=== PATIENT | male | born 1965 | race African-American/Black ===

== ENCOUNTER 2017-12-02 22:15 | Inpatient (IN) | payer MEDICAID ==
[~2017-12-02] VITALS: Ht 198.1 cm; Wt 61.2 kg
[2017-12-02] MEDS ORDERED: MELOXICAM7.5 MG PO (22:27)
[2017-12-02] MEDS ORDERED: SERTRALINE HCL25 MG ORAL (22:27)
[2017-12-02] MEDS ORDERED: LISINOPRIL5 MG ORAL (22:27)
[2017-12-02] MEDS ORDERED: ATORVASTATIN CA20 MG ORAL (22:27)
[2017-12-02] MEDS ORDERED: ISOSORBIDE DINIT5 MG ORAL (22:27)
[2017-12-02] MEDS ORDERED: IBUPROFEN600 MG ORAL (22:27)
[2017-12-02] MEDS ORDERED: CARVEDILOL6.25 MG ORAL (22:27)
[2017-12-02] MEDS ORDERED: LATUDA40 MG PO (22:27)
[2017-12-02] MEDS ORDERED: ZOFRAN8 MG ORAL (22:27)
[2017-12-02] MEDS ORDERED: ACID REDUCER20 MG ORAL (22:27)
[2017-12-02] MEDS ORDERED: TRAZODONE HCL100 MG ORAL (22:27)
[2017-12-02] MEDS ORDERED: ASPIR 8181 MG ORAL (22:27)
[2017-12-02 22:39] VITALS: BP 145/84
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
[2017-12-02] MEDS ORDERED: Mylanta II UD 30ml ORAL ONE (22:45)
[2017-12-02] MEDS ORDERED: Lidocaine 2% Visc 15ml soln ORAL ONE (22:45)
[2017-12-02] MEDS ORDERED: Dicyclomine HCl 10mg/5ml oral soln ORAL ONE (22:45)
[2017-12-02 23:04] LABS: APPEARANCE,URINE CLEAR; BILIRUBIN, URINE NEGATIVE (NEGATIVE); COLOR,URINE PALE YELLOW; GLUCOSE, URINE (UA) NEGATIVE (NEGATIVE); KETONES,URINE NEGATIVE (NEGATIVE); LEUKOCYTE ESTERASE ,URINE NEGATIVE (NEGATIVE); NITRITE,URINE NEGATIVE (NEGATIVE); PH,URINE 8 (4.5-8.0); PROTEIN,URINE NEGATIVE (NEGATIVE); UROBILINOGEN,URINE NORMAL MG/DL (0.0-1.0)
[2017-12-02 23:05] LABS: BASOPHILS % (AUTO) 0.5 % (0.0-2.0); EOSINOPHILS % (AUTO) 1.1 % (0.0-3.0); HEMATOCRIT 35.8 % (42.0-52.0); HEMOGLOBIN 12.8 G/DL (14.2-18.0); LYMPHOCYTES % (AUTO) 16.8 % (20.0-45.0); MEAN CORPUSCULAR VOLUME 96 FL (80-99); NEUTROPHILS % (AUTO) 74.6 % (45.0-75.0); PLATELET COUNT 272 K/UL (150-450); RED BLOOD COUNT 3.75 M/UL (4.70-6.10); RED CELL DISTRIBUTION WIDTH 10.7 % (11.6-14.8); WHITE BLOOD COUNT 7.7 K/UL (4.8-10.8)
[2017-12-02 23:22] LABS: ANION GAP 5 mmol/L (5-15); BLOOD UREA NITROGEN 13 mg/dL (7-18); CALCIUM 8.4 MG/DL (8.5-10.1); CARBON DIOXIDE 32 MMOL/L (21-32); CHLORIDE 103 MMOL/L (98-107); CREATININE 0.8 MG/DL (0.55-1.30); POTASSIUM 4.2 MMOL/L (3.5-5.1); SODIUM 140 MMOL/L (136-145)
[2017-12-02 23:35] LABS: ALANINE AMINOTRANSFERASE 35 U/L (12-78); ALBUMIN 3.7 G/DL (3.4-5.0); ALBUMIN/GLOBULIN RATIO 1.1 (1.0-2.7); ALKALINE PHOSPHATASE 62 U/L (46-116); ASPARTATE AMINO TRANSFERASE 36 U/L (15-37); BILIRUBIN,TOTAL 0.8 MG/DL (0.2-1.0); CKMB 2.1 NG/ML (0.0-3.6); CREATINE KINASE 173 U/L (26-308)
[2017-12-03] VITALS (7 sets, daily range): BP systolic 108–146; BP diastolic 70–91
[2017-12-03] MEDS: Morphine Sulfate 2mg/ml Inj IVP PRN ×2 (02:29→13:11)
[2017-12-03] MEDS ORDERED: Lexiscan 0.4mg/5ml syringe IV ONE (08:00)
[2017-12-03] MEDS: Carvedilol 6.25mg Tab ORAL SCH ×2 (09:00→20:50)
[2017-12-03] MEDS: Aspirin Baby 81mg ORAL SCH (09:44)
[2017-12-03] MEDS: Sertraline 100mg tab ORAL SCH (09:44)
[2017-12-03] MEDS: Lisinopril 2.5mg tab ORAL SCH (09:45)
[2017-12-03] MEDS: Heparin 5000 units/ml inj SUBQ SCH ×2 (09:46→20:52)
--- NOTE | 2017-12-03 13:07 | Diagnostic Imaging Report ---
. Indication: Chest pain Technique: XRAY Chest 1v Comparison: None Findings: Heart size and mediastinal contours are within normal limits given technique. There is no focal consolidation, pneumothorax or pleural effusion. Osseous structures demonstrate no acute abnormality. Impression: No radiographic evidence of acute cardiopulmonary disease.
--- NOTE | 2017-12-03 15:23 | History & Physical ---
History and Physical History & Physicial Dictated for Int Med - Dr Laughlin no. [id number]. DINESH ELIZALDE Dec 03, 2017 15:23
--- NOTE | 2017-12-03 15:25 | Cardiac Electrophysiology PN ---
Subjective Subjective [id number] Objective Last 24 Hour Vital Signs Date Time Temp Pulse Resp B/P (MAP) Pulse Ox O2 Delivery O2 Flow Rate FiO2 12/03/17 13:10 114/75 12/03/17 12:00 58 12/03/17 12:00 98.2 52 21 114/75 100 Room Air 98.2 12/03/17 09:45 146/80 12/03/17 09:44 146/80 12/03/17 09:00 56 146/80 12/03/17 08:00 53 12/03/17 08:00 97.9 56 20 146/80 97 Room Air 97.9 12/03/17 04:00 66 12/03/17 04:00 97.9 59 20 143/77 98 Room Air 97.9 12/03/17 01:23 98.1 61 18 146/91 100 Room Air 98.1 12/03/17 01:20 97.9 58 18 146/85 100 Room Air 97.9 12/03/17 00:20 98.1 61 18 146/91 100 Room Air 98.1 12/03/17 00:00 68 12/02/17 22:39 61 18 Room Air 12/02/17 22:39 98.1 61 18 145/84 100 Room Air 98.1 12/02/17 22:11 98.1 90 16 154/96 98 Room Air 98.1 Laboratory Tests Test 12/02/17 22:52 12/02/17 22:55 12/03/17 09:55 Urine Color Pale yellow Urine Appearance Clear Urine pH 8 (4.5-8.0) Urine Specific [place] 1.010 (1.005-1.035) Urine Protein Negative (NEGATIVE) Urine Glucose (UA) Negative (NEGATIVE) Urine Ketones Negative (NEGATIVE) Urine Occult Blood Negative (NEGATIVE) Urine Nitrite Negative (NEGATIVE) Urine Bilirubin Negative (NEGATIVE) Urine Urobilinogen Normal MG/DL (0.0-1.0) Urine Leukocyte Esterase Negative (NEGATIVE) White Blood Count 7.7 K/UL (4.8-10.8) Red Blood Count 3.75 M/UL (4.70-6.10) L Hemoglobin 12.8 G/DL (14.2-18.0) L Hematocrit 35.8 % (42.0-52.0) L Mean Corpuscular Volume 96 FL (80-99) Mean Corpuscular Hemoglobin 34.2 PG (27.0-31.0) H Mean Corpuscular Hemoglobin Concent 35.8 G/DL (32.0-36.0) Red Cell Distribution Width 10.7 % (11.6-14.8) L Platelet Count 272 K/UL (150-450) Mean Platelet Volume 6.1 FL (6.5-10.1) L Neutrophils (%) (Auto) 74.6 % (45.0-75.0) Lymphocytes (%) (Auto) 16.8 % (20.0-45.0) L Monocytes (%) (Auto) 7.0 % (1.0-10.0) Eosinophils (%) (Auto) 1.1 % (0.0-3.0) Basophils (%) (Auto) 0.5 % (0.0-2.0) Sodium Level 140 MMOL/L (136-145) Potassium Level 4.2 MMOL/L (3.5-5.1) Chloride Level 103 MMOL/L (98-107) Carbon Dioxide Level 32 MMOL/L (21-32) Anion Gap 5 mmol/L (5-15) Blood Urea Nitrogen 13 mg/dL (7-18) Creatinine 0.8 MG/DL (0.55-1.30) Estimat Glomerular Filtration Rate > 60 mL/min (>60) Glucose Level 93 MG/DL (74-106) Calcium Level 8.4 MG/DL (8.5-10.1) L Total Bilirubin 0.8 MG/DL (0.2-1.0) Aspartate Amino Transf (AST/SGOT) 36 U/L (15-37) Alanine Aminotransferase (ALT/SGPT) 35 U/L (12-78) Alkaline Phosphatase 62 U/L (46-116) Total Creatine Kinase 173 U/L (26-308) Creatine Kinase MB 2.1 NG/ML (0.0-3.6) Creatine Kinase MB Relative Index 1.2 Troponin I 0.000 ng/mL (0.000-0.056) 0.000 ng/mL (0.000-0.056) Pro-B-Type Natriuretic Peptide 177 pg/mL (0-125) H Total Protein 7.2 G/DL (6.4-8.2) Albumin 3.7 G/DL (3.4-5.0) Globulin 3.5 g/dL Albumin/Globulin Ratio 1.1 (1.0-2.7) [place] Lake MD Dec 03, 2017 15:25
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
--- NOTE | 2017-12-03 17:36 | Diagnostic Imaging Report ---
Indications: Chest pain Technique: Single day single isotope protocol utilized. Initially, resting images obtained using IV administration 10 millicuries 99M technetium Myoview. Subsequently, patient underwent stress testing. See cardiology report for details. During stress, IV administration 31.8 mCi 99 M technetium Myoview. SPECT and planar images obtained. SPECT images gated to 8 phases of the cardiac cycle were also obtained, and reformatted into cine images for evaluation of ejection fraction. Comparison: None Findings: Nausea was encountered during stress portion of the exam. Per cardiology report, resting EKG demonstrates sinus bradycardia with repolarization abnormality. Per cardiology report: * Clinical response to pharmacologic stress: Nonischemic * Electrocardiographic response to pharmacologic stress: Nonischemic Imaging demonstrates normal post stress perfusion, no fixed or reversible perfusion defects are demonstrated. Cardiac chamber size is normal.. Calculated post stress ejection fraction 70% IMPRESSION: Nonischemic clinical response to pharmacologic stress, per cardiology report Nonischemic electrocardiographic response to pharmacologic stress, per cardiology report No imaging findings to suggest ischemia, at level of stress achieved. Calculated post stress ejection fraction of 70%
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
[2017-12-03] MEDS: TraZODone 100mg tab ORAL SCH (20:49)
[2017-12-03] MEDS: Atorvastatin 20mg tab ORAL SCH (20:49)
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
[2017-12-04] VITALS: BP 98/56
[2017-12-04 04:00] VITALS: BP 106/64
--- NOTE | 2017-12-04 08:11 | General Progress Note ---
Assessment/Plan Problem List: (1) Epigastric pain ICD Codes: R10.13 - Epigastric pain SNOMED: 47049980 Assessment/Plan fu ct add laxatives fu labs GI procedures on hold Subjective ROS Limited/Unobtainable: Yes Allergies: Coded Allergies: No Known Allergies (Unverified , 12/02/17) Subjective abd pain is better going for CT no BM for 3 days Objective Last 24 Hour Vital Signs Date Time Temp Pulse Resp B/P (MAP) Pulse Ox O2 Delivery O2 Flow Rate FiO2 12/04/17 04:00 55 12/04/17 04:00 97.7 57 18 106/64 97 Room Air 97.7 12/04/17 00:00 55 12/04/17 00:00 97.7 54 18 98/56 98 Room Air 97.7 12/03/17 20:50 54 126/71 12/03/17 20:00 97.9 54 18 126/71 98 Room Air 97.9 12/03/17 20:00 56 12/03/17 17:13 110/75 12/03/17 16:00 97.5 60 18 108/70 98 Room Air 97.5 12/03/17 13:10 114/75 12/03/17 12:00 58 12/03/17 12:00 98.2 52 21 114/75 100 Room Air 98.2 12/03/17 09:45 146/80 12/03/17 09:44 146/80 12/03/17 09:00 56 146/80 Intake and Output 12/03/17 12/04/17 19:00 07:00 Intake Total 350 ml 300 ml Balance 350 ml 300 ml Intake Oral 300 ml Other 350 ml # Voids 3 Laboratory Tests 12/03/17 09:55: Troponin I 0.000 12/03/17 10:10: Lipase 53L Height (Feet): 6 Height (Inches): 6.00 Weight (Pounds): 135 General Appearance: alert EENT: normal ENT inspection Neck: supple Cardiovascular: normal rate Respiratory/Chest: decreased breath sounds Abdomen: normal bowel sounds, non tender, soft Extremities: non-tender CRESENCIO NYE Dec 04, 2017 08:11
[2017-12-04] MEDS: Docusate 100mg cap ORAL SCH ×2 (09:09→17:52)
[2017-12-04] MEDS: Aspirin Baby 81mg ORAL SCH (09:09)
[2017-12-04] MEDS: Lisinopril 2.5mg tab ORAL SCH (09:10)
[2017-12-04] MEDS: Carvedilol 6.25mg Tab ORAL SCH ×2 (09:11→21:00)
[2017-12-04] MEDS: Sertraline 100mg tab ORAL SCH (09:11)
[2017-12-04] MEDS: Heparin 5000 units/ml inj SUBQ SCH ×2 (09:16→21:20)
[2017-12-04 10:08] LABS: BASOPHILS % (AUTO) 0.3 % (0.0-2.0); EOSINOPHILS % (AUTO) 2.8 % (0.0-3.0); HEMATOCRIT 35.1 % (42.0-52.0); HEMOGLOBIN 12.1 G/DL (14.2-18.0); MEAN CORPUSCULAR VOLUME 97 FL (80-99); MONOCYTES % (AUTO) 9.8 % (1.0-10.0); NEUTROPHILS % (AUTO) 60.1 % (45.0-75.0); PLATELET COUNT 249 K/UL (150-450); RED BLOOD COUNT 3.63 M/UL (4.70-6.10); RED CELL DISTRIBUTION WIDTH 10.5 % (11.6-14.8); WHITE BLOOD COUNT 5.2 K/UL (4.8-10.8)
--- NOTE | 2017-12-04 10:24 | Diagnostic Imaging Report ---
. Indication: Reason For Exam: ABD PAIN Technique: CT scan of the abdomen and pelvis was performed from the diaphragms to the symphysis pubis with intravenous contrast material and oral contrast material. Biphasic liver scanning was employed. 5 mm sections were generated. Axial, coronal, and sagittal images are presented. Dose: Total Dose Length Product - DLP [address] Dose Index - CTDIvol(s) 9.20 mGy. Automated exposure control was utilized for dose reduction. Comparison: None Findings: Most of the oral contrast material is in the colon. The liver is normal. The gallbladder is unremarkable. The spleen is normal. The pancreas is unremarkable. Adrenal glands are normal. There is a 10 mm calcification in the upper pole the left kidney. Tiny low density lesions are noted in the cortex of both kidneys, too small to characterize. The aorta and inferior vena cava are normal caliber. The retroperitoneum is free of adenopathy. The bowel is normal caliber. The appendix is normal. Bladder is collapsed. Prostate and seminal vesicles are unremarkable. Diverticula are noted in the colon. There is no definite evidence of diverticulitis. Impression: Left upper pole renal calculus, nonobstructive. Tiny low-density lesions in the kidneys bilaterally, too small to characterize but likely cysts. Diverticulosis. No evidence of diverticulitis. The CT scanner at is accredited by the [employer] and the scans are performed using protocols designed to limit radiation exposure to as low as reasonably achievable to attain images of sufficient resolution adequate for diagnostic evaluation.
[2017-12-04 10:52] LABS: ALANINE AMINOTRANSFERASE 31 U/L (12-78); ALBUMIN 3.4 G/DL (3.4-5.0); ALBUMIN/GLOBULIN RATIO 1.2 (1.0-2.7); ALKALINE PHOSPHATASE 57 U/L (46-116); ANION GAP 6 mmol/L (5-15); ASPARTATE AMINO TRANSFERASE 24 U/L (15-37); BILIRUBIN,TOTAL 0.7 MG/DL (0.2-1.0); BLOOD UREA NITROGEN 17 mg/dL (7-18); CALCIUM 8.2 MG/DL (8.5-10.1); CARBON DIOXIDE 30 MMOL/L (21-32); CHLORIDE 106 MMOL/L (98-107); CREATININE 0.8 MG/DL (0.55-1.30); POTASSIUM 4.2 MMOL/L (3.5-5.1); SODIUM 141 MMOL/L (136-145)
[2017-12-04] MEDS ORDERED: NORCO 5-325 TA1 EACH ORAL (12:37)
[2017-12-04] MEDS ORDERED: PANTOPRAZOLE SO40 MG ORAL (12:37)
--- NOTE | 2017-12-04 13:20 | Cardiac Electrophysiology PN ---
Assessment/Plan Status Narrative IMPRESSION: Nonischemic clinical response to pharmacologic stress, per cardiology report Nonischemic electrocardiographic response to pharmacologic stress, per cardiology report No imaging findings to suggest ischemia, at level of stress achieved. Calculated post stress ejection fraction of 70% Assessment/Plan 1. Atypical chest pain. The patient was ruled out for myocardial infarction by serial cardiac enzymes. The patient underwent echocardiogram that showed ejection fraction of 60% and underwent Lexiscan Cardiolite nuclear imaging that showed no ischemia 2. Questionable coronary artery disease. I highly doubt as EKG and echocardiogram completely normal. 3. Hyperlipidemia, on Lipitor. 4. Hypertension, on Coreg 6.25 mg b.i.d. and lisinopril 5 mg daily and Isordil 10 mg 3 times daily. 5. Depression, on Zoloft. 6. History of cocaine use in the past, currently denies. 7. Abdominal pain. S/P CT abdomen. Follow up Dr Susi MONTES RN Subjective Subjective Had CT abdomen today. No chest pain or arrhythmias Objective Last 24 Hour Vital Signs Date Time Temp Pulse Resp B/P (MAP) Pulse Ox O2 Delivery O2 Flow Rate FiO2 12/04/17 09:11 80 123/73 12/04/17 09:10 123/73 12/04/17 09:10 123/73 12/04/17 08:00 54 12/04/17 04:00 55 12/04/17 04:00 97.7 57 18 106/64 97 Room Air 97.7 12/04/17 00:00 55 12/04/17 00:00 97.7 54 18 98/56 98 Room Air 97.7 12/03/17 20:50 54 126/71 12/03/17 20:00 97.9 54 18 126/71 98 Room Air 97.9 12/03/17 20:00 56 12/03/17 17:13 110/75 12/03/17 16:00 97.5 60 18 108/70 98 Room Air 97.5 Intake and Output 12/03/17 12/04/17 19:00 07:00 Intake Total 350 ml 300 ml Balance 350 ml 300 ml Intake Oral 300 ml Other 350 ml # Voids 3 Laboratory Tests Test 12/04/17 09:10 White Blood Count 5.2 K/UL (4.8-10.8) Red Blood Count 3.63 M/UL (4.70-6.10) L Hemoglobin 12.1 G/DL (14.2-18.0) L Hematocrit 35.1 % (42.0-52.0) L Mean Corpuscular Volume 97 FL (80-99) Mean Corpuscular Hemoglobin 33.2 PG (27.0-31.0) H Mean Corpuscular Hemoglobin Concent 34.4 G/DL (32.0-36.0) Red Cell Distribution Width 10.5 % (11.6-14.8) L Platelet Count 249 K/UL (150-450) Mean Platelet Volume 6.5 FL (6.5-10.1) Neutrophils (%) (Auto) 60.1 % (45.0-75.0) Lymphocytes (%) (Auto) 27.0 % (20.0-45.0) Monocytes (%) (Auto) 9.8 % (1.0-10.0) Eosinophils (%) (Auto) 2.8 % (0.0-3.0) Basophils (%) (Auto) 0.3 % (0.0-2.0) Sodium Level 141 MMOL/L (136-145) Potassium Level 4.2 MMOL/L (3.5-5.1) Chloride Level 106 MMOL/L (98-107) Carbon Dioxide Level 30 MMOL/L (21-32) Anion Gap 6 mmol/L (5-15) Blood Urea Nitrogen 17 mg/dL (7-18) Creatinine 0.8 MG/DL (0.55-1.30) Estimat Glomerular Filtration Rate > 60 mL/min (>60) Glucose Level 98 MG/DL (74-106) Calcium Level 8.2 MG/DL (8.5-10.1) L Total Bilirubin 0.7 MG/DL (0.2-1.0) Aspartate Amino Transf (AST/SGOT) 24 U/L (15-37) Alanine Aminotransferase (ALT/SGPT) 31 U/L (12-78) Alkaline Phosphatase 57 U/L (46-116) Troponin I 0.000 ng/mL (0.000-0.056) Total Protein 6.3 G/DL (6.4-8.2) L Albumin 3.4 G/DL (3.4-5.0) Globulin 2.9 g/dL Albumin/Globulin Ratio 1.2 (1.0-2.7) Objective HEAD AND NECK: Shows no JVD. LUNGS: Clear. CARDIOVASCULAR: Regular S1 and S2 with no gallop or murmur. ABDOMEN: Soft. History of eschar of prior surgery and healed. EXTREMITIES: No pitting edema. [place] MD Dec 04, 2017 13:20
[2017-12-04] MEDS ORDERED: Magnesium Citrate Liq Btl ORAL ONE (13:30)
--- NOTE | 2017-12-04 16:42 | Internal Med Progress Note ---
Subjective Date of Service: Dec 04, 2017 Physician Name Ronald Elizalde Attending Physician Chong Laughlin MD Current Medications Medications (Trade) Dose Ordered Sig/Becca Route PRN Reason Start Time Stop Time Status Last Admin Dose Admin Acetaminophen (Tylenol) 650 mg Q6H PRN ORAL Mild Pain/Temp > 100.5 12/03/17 01:45 01/02/18 01:44 Al Hydroxide/Mg Hydroxide (Mylanta) 30 ml EVERY 8 HOURS PRN ORAL Abdominal cramps 12/03/17 01:45 01/02/18 01:44 Aspirin (ASA) 81 mg DAILY ORAL 12/03/17 09:00 01/02/18 08:59 12/04/17 09:09 Atorvastatin Calcium (Lipitor) 20 mg BEDTIME ORAL 12/03/17 21:00 01/02/18 20:59 12/03/17 20:49 Carvedilol (Coreg) 6.25 mg EVERY 12 HOURS ORAL 12/03/17 09:00 01/02/18 08:59 12/04/17 09:11 Docusate Sodium (Colace) 100 mg TWICE A DAY ORAL 12/04/17 09:00 01/03/18 08:59 12/04/17 09:09 Famotidine (Pepcid) 20 mg BID ORAL 12/03/17 09:00 01/02/18 08:59 12/04/17 09:10 Heparin Sodium (Porcine) (Heparin 5000 units/ml) 5,000 units EVERY 12 HOURS SUBQ 12/03/17 09:00 01/02/18 08:59 12/04/17 09:16 Influenza Virus Vaccine Quadrival (Flu Vaccine Quadrivalent) 0.5 ml ONCE ONCE IM 12/07/17 09:00 12/07/17 09:01 Isosorbide Dinitrate (Isordil) 10 mg THREE TIMES A DAY ORAL 12/03/17 09:00 01/02/18 08:59 12/04/17 13:32 Lisinopril (Zestril) 5 mg DAILY ORAL 12/03/17 09:00 01/02/18 08:59 12/04/17 09:10 Morphine Sulfate (Morphine Sulfate) 2 mg Q6H PRN IVP severe pain 12/03/17 02:15 12/10/17 02:14 12/03/17 13:11 Ondansetron HCl (Zofran ODT) 4 mg Q6H PRN ORAL Nausea & Vomiting 12/03/17 02:30 01/02/18 02:29 Polyethylene Glycol (Miralax) 17 gm BEDTIME ORAL 12/04/17 21:00 01/03/18 20:59 Sertraline HCl (Zoloft) 100 mg DAILY ORAL 12/03/17 09:00 01/02/18 08:59 12/04/17 09:11 Trazodone HCl (Desyrel) 100 mg BEDTIME ORAL 12/03/17 21:00 01/02/18 20:59 12/03/17 20:49 Allergies: Coded Allergies: No Known Allergies (Unverified , 12/02/17) ROS Limited/Unobtainable: Yes Constitutional: Reports: no symptoms HEENT: Reports: no symptoms Cardiovascular: Reports: chest pain Respiratory: Reports: no symptoms Gastrointestinal/Abdominal: Reports: no symptoms Genitourinary: Reports: no symptoms Neurologic/Psychiatric: Reports: no symptoms Subjective 52 YO M admitted with chest pain. Cover for [facility] Med - Dr Laughlin. Objective Last Vital Signs Date Time Temp Pulse Resp B/P (MAP) Pulse Ox O2 Delivery O2 Flow Rate FiO2 12/04/17 13:32 112/62 12/04/17 12:00 54 12/04/17 04:00 97.7 18 97 Room Air 97.7 Laboratory Tests Test 12/04/17 09:10 White Blood Count 5.2 K/UL (4.8-10.8) Red Blood Count 3.63 M/UL (4.70-6.10) L Hemoglobin 12.1 G/DL (14.2-18.0) L Hematocrit 35.1 % (42.0-52.0) L Mean Corpuscular Volume 97 FL (80-99) Mean Corpuscular Hemoglobin 33.2 PG (27.0-31.0) H Mean Corpuscular Hemoglobin Concent 34.4 G/DL (32.0-36.0) Red Cell Distribution Width 10.5 % (11.6-14.8) L Platelet Count 249 K/UL (150-450) Mean Platelet Volume 6.5 FL (6.5-10.1) Neutrophils (%) (Auto) 60.1 % (45.0-75.0) Lymphocytes (%) (Auto) 27.0 % (20.0-45.0) Monocytes (%) (Auto) 9.8 % (1.0-10.0) Eosinophils (%) (Auto) 2.8 % (0.0-3.0) Basophils (%) (Auto) 0.3 % (0.0-2.0) Sodium Level 141 MMOL/L (136-145) Potassium Level 4.2 MMOL/L (3.5-5.1) Chloride Level 106 MMOL/L (98-107) Carbon Dioxide Level 30 MMOL/L (21-32) Anion Gap 6 mmol/L (5-15) Blood Urea Nitrogen 17 mg/dL (7-18) Creatinine 0.8 MG/DL (0.55-1.30) Estimat Glomerular Filtration Rate > 60 mL/min (>60) Glucose Level 98 MG/DL (74-106) Calcium Level 8.2 MG/DL (8.5-10.1) L Total Bilirubin 0.7 MG/DL (0.2-1.0) Aspartate Amino Transf (AST/SGOT) 24 U/L (15-37) Alanine Aminotransferase (ALT/SGPT) 31 U/L (12-78) Alkaline Phosphatase 57 U/L (46-116) Troponin I 0.000 ng/mL (0.000-0.056) Total Protein 6.3 G/DL (6.4-8.2) L Albumin 3.4 G/DL (3.4-5.0) Globulin 2.9 g/dL Albumin/Globulin Ratio 1.2 (1.0-2.7) Intake and Output 12/03/17 12/04/17 19:00 07:00 Intake Total 350 ml 300 ml Balance 350 ml 300 ml Intake Oral 300 ml Other 350 ml # Voids 3 Objective PHYSICAL EXAMINATION: GENERAL: The patient is a well-developed and well-nourished thin-appearing male, in no apparent distress. VITAL SIGNS: Temperature 97.9 degrees, respirations 20, pulse 50 to 56, and blood pressure 146/80. HEENT: Eyes, pupils are equal and responsive to light and accommodation. Extraocular movements are intact. NECK: Supple without lymphadenopathy. CHEST: Lungs are clear to auscultation bilaterally without wheezes or rales. CARDIOVASCULAR: Regular rate. S1 and S2 normal without murmurs, rubs, or gallops. ABDOMEN: Soft, nontender, and nondistended. Positive bowel sounds. No evidence of hepatosplenomegaly. Currently, no rebound or guarding noted. EXTREMITIES: Negative for clubbing, cyanosis, or edema. RECTAL/GENITAL: Refused. NEUROLOGIC: Cranial nerves II through XII are grossly intact without focal deficits. Motor strength is 5/5 bilaterally. Deep tendon reflexes are 2+ plantar. Assessment/Plan Problem List: (1) Atypical chest pain Assessment & Plan: See cardiology note. Stress test = neg ischemia (2) Coronary artery disease (3) HTN (hypertension) Assessment & Plan: continue coreg and zestril (4) DMII (diabetes mellitus, type 2) (5) Hypercholesteremia Assessment & Plan: Continue lipitor (6) Bipolar 1 disorder Assessment & Plan: see psych note. (7) Renal calculus (8) Diverticulosis Status: not improved RONALD ELIZALDE Dec 04, 2017 16:42
[2017-12-04] MEDS: Nitroglycerin Subl 0.4mg tab SL PRN (17:53)
--- NOTE | 2017-12-04 18:05 | Cardiology Report ---
APPROVED REPORT EKG Measurement Heart [id number] Sinus bradycardia Otherwise normal ECG
--- NOTE | 2017-12-04 18:13 | Cardiology Report ---
APPROVED REPORT EKG Measurement Heart [id number] 124P80 [id number] Normal sinus rhythm Incomplete RBBB Abnormal ECG
[2017-12-04 20:00] VITALS: BP 120/69
[2017-12-04] MEDS: Miralax 17gm pkt ORAL SCH (21:00)
[2017-12-04] MEDS: TraZODone 100mg tab ORAL SCH (21:10)
[2017-12-04] MEDS: Atorvastatin 20mg tab ORAL SCH (21:10)
[2017-12-04] MEDS: Morphine Sulfate 2mg/ml Inj IVP PRN (21:11)
--- NOTE | 2017-12-05 08:20 | General Progress Note ---
Assessment/Plan Problem List: (1) Epigastric pain ICD Codes: R10.13 - Epigastric pain SNOMED: [id number] Assessment/Plan fu ct>> no acute finding laxatives fu labs GI procedures on hold Subjective ROS Limited/Unobtainable: Yes Allergies: Coded Allergies: No Known Allergies (Unverified , 12/02/17) Subjective abd pain is better had CP last night Objective Last 24 Hour Vital Signs Date Time Temp Pulse Resp B/P (MAP) Pulse Ox O2 Delivery O2 Flow Rate FiO2 12/05/17 04:00 58 12/05/17 00:00 57 12/04/17 20:00 97.7 54 20 120/69 100 97.7 12/04/17 20:00 57 12/04/17 17:53 139/77 12/04/17 17:50 124/71 12/04/17 16:00 57 12/04/17 13:32 112/62 12/04/17 12:00 54 12/04/17 09:11 80 123/73 12/04/17 09:10 123/73 12/04/17 09:10 123/73 Intake and Output 12/04/17 12/05/17 19:00 07:00 Intake Total 480 ml 240 ml Balance 480 ml 240 ml Intake Oral 480 ml 240 ml # Bowel Movements 2 Laboratory Tests 12/04/17 09:10: White Blood Count 5.2, Red Blood Count 3.63L, Hemoglobin 12.1L, Hematocrit 35.1L , Mean Corpuscular Volume 97, Mean Corpuscular Hemoglobin 33.2H, Mean Corpuscular Hemoglobin Concent 34.4, Red Cell Distribution Width 10.5L, Platelet Count 249, Mean Platelet Volume 6.5, Neutrophils (%) (Auto) 60.1, Lymphocytes (%) (Auto) 27.0, Monocytes (%) (Auto) 9.8, Eosinophils (%) (Auto) 2.8, Basophils (%) (Auto) 0.3, Sodium Level 141, Potassium Level 4.2, Chloride Level 106, Carbon Dioxide Level 30, Anion Gap 6, Blood Urea Nitrogen 17, Creatinine 0.8, Estimat Glomerular Filtration Rate > 60, Glucose Level 98, Calcium Level 8.2L, Total Bilirubin 0.7, Aspartate Amino Transf (AST/SGOT) 24, Alanine Aminotransferase (ALT/SGPT) 31, Alkaline Phosphatase 57, Troponin I 0.000, Total Protein 6.3L, Albumin 3.4, Globulin 2.9, Albumin/Globulin Ratio 1.2 Height (Feet): 6 Height (Inches): 6.00 Weight (Pounds): 135 General Appearance: alert EENT: normal ENT inspection Neck: supple Cardiovascular: normal rate Respiratory/Chest: decreased breath sounds Abdomen: normal bowel sounds, non tender, soft Extremities: non-tender CRESENCIO NYE Dec 05, 2017 08:20
[2017-12-05 08:40] VITALS: BP 118/66
[2017-12-05] MEDS: Aspirin Baby 81mg ORAL SCH (08:50)
[2017-12-05] MEDS: Carvedilol 6.25mg Tab ORAL SCH ×2 (08:52→21:00)
[2017-12-05] MEDS: Docusate 100mg cap ORAL SCH ×2 (08:52→18:32)
[2017-12-05] MEDS: Lisinopril 2.5mg tab ORAL SCH (08:52)
[2017-12-05] MEDS: Sertraline 100mg tab ORAL SCH (08:53)
[2017-12-05] MEDS: Heparin 5000 units/ml inj SUBQ SCH ×2 (08:54→21:29)
[2017-12-05 09:29] LABS: BASOPHILS % (AUTO) 0.8 % (0.0-2.0); EOSINOPHILS % (AUTO) 2.6 % (0.0-3.0); HEMATOCRIT 36.3 % (42.0-52.0); HEMOGLOBIN 12.3 G/DL (14.2-18.0); LYMPHOCYTES % (AUTO) 26.5 % (20.0-45.0); MEAN CORPUSCULAR VOLUME 97 FL (80-99); MONOCYTES % (AUTO) 10.5 % (1.0-10.0); NEUTROPHILS % (AUTO) 59.6 % (45.0-75.0); PLATELET COUNT 250 K/UL (150-450); RED BLOOD COUNT 3.74 M/UL (4.70-6.10); RED CELL DISTRIBUTION WIDTH 10.8 % (11.6-14.8); WHITE BLOOD COUNT 4.6 K/UL (4.8-10.8)
--- NOTE | 2017-12-05 09:43 | Internal Med Progress Note ---
Subjective Date of Service: Dec 05, 2017 Physician Name Ronald Elizalde Attending Physician Chong Laughlin MD Current Medications Medications (Trade) Dose Ordered Sig/Becca Route PRN Reason Start Time Stop Time Status Last Admin Dose Admin Acetaminophen (Tylenol) 650 mg Q6H PRN ORAL Mild Pain/Temp > 100.5 12/03/17 01:45 01/02/18 01:44 Al Hydroxide/Mg Hydroxide (Mylanta) 30 ml EVERY 8 HOURS PRN ORAL Abdominal cramps 12/03/17 01:45 01/02/18 01:44 Aspirin (ASA) 81 mg DAILY ORAL 12/03/17 09:00 01/02/18 08:59 12/05/17 08:50 Atorvastatin Calcium (Lipitor) 20 mg BEDTIME ORAL 12/03/17 21:00 01/02/18 20:59 12/04/17 21:10 Carvedilol (Coreg) 6.25 mg EVERY 12 HOURS ORAL 12/03/17 09:00 01/02/18 08:59 12/05/17 08:52 Docusate Sodium (Colace) 100 mg TWICE A DAY ORAL 12/04/17 09:00 01/03/18 08:59 12/05/17 08:52 Famotidine (Pepcid) 20 mg BID ORAL 12/03/17 09:00 01/02/18 08:59 12/05/17 08:52 Heparin Sodium (Porcine) (Heparin 5000 units/ml) 5,000 units EVERY 12 HOURS SUBQ 12/03/17 09:00 01/02/18 08:59 12/05/17 08:54 Influenza Virus Vaccine Quadrival (Flu Vaccine Quadrivalent) 0.5 ml ONCE ONCE IM 12/07/17 09:00 12/07/17 09:01 Isosorbide Dinitrate (Isordil) 10 mg THREE TIMES A DAY ORAL 12/03/17 09:00 01/02/18 08:59 12/05/17 08:52 Lisinopril (Zestril) 5 mg DAILY ORAL 12/03/17 09:00 01/02/18 08:59 12/05/17 08:52 Morphine Sulfate (Morphine Sulfate) 2 mg Q6H PRN IVP severe pain 12/03/17 02:15 12/10/17 02:14 12/04/17 21:11 Nitroglycerin (Ntg) 0.4 mg Q5M PRN SL Prn Chest Pain 12/04/17 17:15 01/03/18 17:14 12/04/17 17:53 Ondansetron HCl (Zofran ODT) 4 mg Q6H PRN ORAL Nausea & Vomiting 12/03/17 02:30 01/02/18 02:29 Polyethylene Glycol (Miralax) 17 gm BEDTIME ORAL 12/04/17 21:00 01/03/18 20:59 Sertraline HCl (Zoloft) 100 mg DAILY ORAL 12/03/17 09:00 01/02/18 08:59 12/05/17 08:53 Trazodone HCl (Desyrel) 100 mg BEDTIME ORAL 12/03/17 21:00 01/02/18 20:59 12/04/17 21:10 Allergies: Coded Allergies: No Known Allergies (Unverified , 12/02/17) ROS Limited/Unobtainable: No Constitutional: Reports: no symptoms HEENT: Reports: no symptoms Cardiovascular: Reports: chest pain Respiratory: Reports: no symptoms Gastrointestinal/Abdominal: Reports: no symptoms Genitourinary: Reports: no symptoms Neurologic/Psychiatric: Reports: no symptoms Subjective 52 YO M admitted with chest pain. Cover for Int Med - Dr Laughlin. C/O chest pain overnight Objective Last Vital Signs Date Time Temp Pulse Resp B/P (MAP) Pulse Ox O2 Delivery O2 Flow Rate FiO2 12/05/17 08:52 118/66 12/05/17 08:52 63 12/05/17 08:40 97.7 19 99 Room Air 97.7 Laboratory Tests Test 12/05/17 08:50 White Blood Count 4.6 K/UL (4.8-10.8) L Red Blood Count 3.74 M/UL (4.70-6.10) L Hemoglobin 12.3 G/DL (14.2-18.0) L Hematocrit 36.3 % (42.0-52.0) L Mean Corpuscular Volume 97 FL (80-99) Mean Corpuscular Hemoglobin 32.9 PG (27.0-31.0) H Mean Corpuscular Hemoglobin Concent 33.9 G/DL (32.0-36.0) Red Cell Distribution Width 10.8 % (11.6-14.8) L Platelet Count 250 K/UL (150-450) Mean Platelet Volume 6.0 FL (6.5-10.1) L Neutrophils (%) (Auto) 59.6 % (45.0-75.0) Lymphocytes (%) (Auto) 26.5 % (20.0-45.0) Monocytes (%) (Auto) 10.5 % (1.0-10.0) H Eosinophils (%) (Auto) 2.6 % (0.0-3.0) Basophils (%) (Auto) 0.8 % (0.0-2.0) Sodium Level Pending Potassium Level Pending Chloride Level Pending Carbon Dioxide Level Pending Blood Urea Nitrogen Pending Creatinine Pending Estimat Glomerular Filtration Rate Pending Glucose Level Pending Calcium Level Pending Total Bilirubin Pending Aspartate Amino Transf (AST/SGOT) Pending Alanine Aminotransferase (ALT/SGPT) Pending Alkaline Phosphatase Pending Troponin I Pending Total Protein Pending Albumin Pending Globulin Pending Intake and Output 12/04/17 12/05/17 19:00 07:00 Intake Total 480 ml 240 ml Balance 480 ml 240 ml Intake Oral 480 ml 240 ml # Bowel Movements 2 Objective PHYSICAL EXAMINATION: GENERAL: The patient is a well-developed and well-nourished thin-appearing male, in no apparent distress. VITAL SIGNS: Temperature 97.9 degrees, respirations 20, pulse 50 to 56, and blood pressure 146/80. HEENT: Eyes, pupils are equal and responsive to light and accommodation. Extraocular movements are intact. NECK: Supple without lymphadenopathy. CHEST: Lungs are clear to auscultation bilaterally without wheezes or rales. CARDIOVASCULAR: Regular rate. S1 and S2 normal without murmurs, rubs, or gallops. ABDOMEN: Soft, nontender, and nondistended. Positive bowel sounds. No evidence of hepatosplenomegaly. Currently, no rebound or guarding noted. EXTREMITIES: Negative for clubbing, cyanosis, or edema. RECTAL/GENITAL: Refused. NEUROLOGIC: Cranial nerves II through XII are grossly intact without focal deficits. Motor strength is 5/5 bilaterally. Deep tendon reflexes are 2+ plantar. Assessment/Plan Problem List: (1) Atypical chest pain Assessment & Plan: See cardiology note. Stress test = neg ischemia (2) Coronary artery disease (3) HTN (hypertension) Assessment & Plan: continue coreg and zestril (4) DMII (diabetes mellitus, type 2) (5) Hypercholesteremia Assessment & Plan: Continue lipitor (6) Bipolar 1 disorder Assessment & Plan: see psych note. (7) Renal calculus (8) Diverticulosis (9) Epigastric abdominal pain Assessment & Plan: GI procedures on hold-see GI note. Status: not improved RONALD ELIZALDE Dec 05, 2017 09:43
[2017-12-05 09:55] LABS: ALANINE AMINOTRANSFERASE 31 U/L (12-78); ALBUMIN 3.3 G/DL (3.4-5.0); ALKALINE PHOSPHATASE 55 U/L (46-116); ANION GAP 2 mmol/L (5-15); ASPARTATE AMINO TRANSFERASE 21 U/L (15-37); BILIRUBIN,TOTAL 0.5 MG/DL (0.2-1.0); BLOOD UREA NITROGEN 14 mg/dL (7-18); CALCIUM 8.2 MG/DL (8.5-10.1); CARBON DIOXIDE 33 MMOL/L (21-32); CHLORIDE 107 MMOL/L (98-107); CREATININE 0.9 MG/DL (0.55-1.30); POTASSIUM 4.5 MMOL/L (3.5-5.1); SODIUM 142 MMOL/L (136-145)
[2017-12-05 12:00] VITALS: BP 121/68
[2017-12-05 16:00] VITALS: BP 121/72
[2017-12-05] MEDS: Nitroglycerin Subl 0.4mg tab SL PRN (18:22)
[2017-12-05 20:00] VITALS: BP 138/83
[2017-12-05] MEDS: Miralax 17gm pkt ORAL SCH (21:00)
[2017-12-05] MEDS: Atorvastatin 20mg tab ORAL SCH (21:25)
[2017-12-05] MEDS: TraZODone 100mg tab ORAL SCH (21:25)
[2017-12-06] VITALS: BP 108/69
[2017-12-06 04:00] VITALS: BP 98/65
[2017-12-06 08:00] VITALS: BP 122/72
--- NOTE | 2017-12-06 08:11 | Cardiology Report ---
APPROVED REPORT EXAM: Two-dimensional and M-mode echocardiogram with Doppler and color Doppler. INDICATION Chest Pain M-Mode DIMENSIONS IVSd1.2 (0.7-1.1cm)Left Atrium (MM)3.5 (1.6-4.0cm) LVDd4.5 (3.5-5.6cm)Aortic Root3.1 (2.0-3.7cm) PWd1.5 (0.7-1.1cm)Aortic Cusp Exc.2.2 (1.5-2.0cm) LVDs3.0 (2.5-4.0cm) PWs1.9 cm Normal left ventricular chamber size, systolic function and wall motion. Left ventricular ejection fraction estimated to be 60 %. Borderline mild left ventricular hypertrophy. No evidence of pericardial effusion. All other cardiac chamber sizes are within normal limits. Mild focal aortic valve sclerosis with adequate cusp excursion. Mildly thickened mitral valve leaflets with normal excursion. Mild mitral annulus and aortic root calcification. Normal pulmonic valve structure. Normal tricuspid valve structure. IVC at normal size with physiologic collapse. Pacemaker wire present in the right side chambers. A color flow and spectral Doppler study was performed and revealed: Trace mitral regurgitation. Mitral inflow indicates normal left ventricular diastolic function. Trace tricuspid regurgitation. Tricuspid systolic velocities suggests peak right ventricular systolic pressure of 26 mmHg.
[2017-12-06 09:00] LABS: BASOPHILS % (AUTO) 0.9 % (0.0-2.0); EOSINOPHILS % (AUTO) 3.3 % (0.0-3.0); HEMATOCRIT 36.3 % (42.0-52.0); HEMOGLOBIN 12.1 G/DL (14.2-18.0); LYMPHOCYTES % (AUTO) 37.1 % (20.0-45.0); MEAN CORPUSCULAR VOLUME 98 FL (80-99); MONOCYTES % (AUTO) 6.7 % (1.0-10.0); NEUTROPHILS % (AUTO) 52.1 % (45.0-75.0); PLATELET COUNT 245 K/UL (150-450); RED BLOOD COUNT 3.72 M/UL (4.70-6.10); RED CELL DISTRIBUTION WIDTH 10.9 % (11.6-14.8); WHITE BLOOD COUNT 5.3 K/UL (4.8-10.8)
[2017-12-06 09:19] LABS: ANION GAP 3 mmol/L (5-15); BLOOD UREA NITROGEN 12 mg/dL (7-18); CALCIUM 8.2 MG/DL (8.5-10.1); CARBON DIOXIDE 32 MMOL/L (21-32); CHLORIDE 108 MMOL/L (98-107); CREATININE 0.9 MG/DL (0.55-1.30); POTASSIUM 4.3 MMOL/L (3.5-5.1); SODIUM 143 MMOL/L (136-145)
[2017-12-06] MEDS: Docusate 100mg cap ORAL SCH (09:27)
[2017-12-06] MEDS: Lisinopril 2.5mg tab ORAL SCH (09:27)
[2017-12-06] MEDS: Carvedilol 6.25mg Tab ORAL SCH (09:27)
[2017-12-06] MEDS: Sertraline 100mg tab ORAL SCH (09:27)
[2017-12-06] MEDS: Aspirin Baby 81mg ORAL SCH (09:27)
[2017-12-06] MEDS: Nitroglycerin Subl 0.4mg tab SL PRN (09:28)
[2017-12-06] MEDS: Heparin 5000 units/ml inj SUBQ SCH (09:30)
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
--- NOTE | 2017-12-06 11:56 | Internal Med Progress Note ---
Subjective Date of Service: Dec 06, 2017 Physician Name Ronald Elizalde Attending Physician Chong Laughlin MD Current Medications Medications (Trade) Dose Ordered Sig/Becca Route PRN Reason Start Time Stop Time Status Last Admin Dose Admin Acetaminophen (Tylenol) 650 mg Q6H PRN ORAL Mild Pain/Temp > 100.5 12/03/17 01:45 01/02/18 01:44 Al Hydroxide/Mg Hydroxide (Mylanta) 30 ml EVERY 8 HOURS PRN ORAL Abdominal cramps 12/03/17 01:45 01/02/18 01:44 Aspirin (ASA) 81 mg DAILY ORAL 12/03/17 09:00 01/02/18 08:59 12/06/17 09:27 Atorvastatin Calcium (Lipitor) 20 mg BEDTIME ORAL 12/03/17 21:00 01/02/18 20:59 12/05/17 21:25 Carvedilol (Coreg) 6.25 mg EVERY 12 HOURS ORAL 12/03/17 09:00 01/02/18 08:59 12/06/17 09:27 Docusate Sodium (Colace) 100 mg TWICE A DAY ORAL 12/04/17 09:00 01/03/18 08:59 12/06/17 09:27 Famotidine (Pepcid) 20 mg BID ORAL 12/03/17 09:00 01/02/18 08:59 12/06/17 09:27 Heparin Sodium (Porcine) (Heparin 5000 units/ml) 5,000 units EVERY 12 HOURS SUBQ 12/03/17 09:00 01/02/18 08:59 12/06/17 09:30 Influenza Virus Vaccine Quadrival (Flu Vaccine Quadrivalent) 0.5 ml ONCE ONCE IM 12/07/17 09:00 12/07/17 09:01 Isosorbide Dinitrate (Isordil) 10 mg THREE TIMES A DAY ORAL 12/03/17 09:00 01/02/18 08:59 12/06/17 09:27 Lisinopril (Zestril) 5 mg DAILY ORAL 12/03/17 09:00 01/02/18 08:59 12/06/17 09:27 Morphine Sulfate (Morphine Sulfate) 2 mg Q6H PRN IVP severe pain 12/03/17 02:15 12/10/17 02:14 12/04/17 21:11 Nitroglycerin (Ntg) 0.4 mg Q5M PRN SL Prn Chest Pain 12/04/17 17:15 01/03/18 17:14 12/06/17 09:28 Ondansetron HCl (Zofran ODT) 4 mg Q6H PRN ORAL Nausea & Vomiting 12/03/17 02:30 01/02/18 02:29 Polyethylene Glycol (Miralax) 17 gm BEDTIME ORAL 12/04/17 21:00 01/03/18 20:59 Sertraline HCl (Zoloft) 100 mg DAILY ORAL 12/03/17 09:00 01/02/18 08:59 12/06/17 09:27 Trazodone HCl (Desyrel) 100 mg BEDTIME ORAL 12/03/17 21:00 01/02/18 20:59 12/05/17 21:25 Allergies: Coded Allergies: No Known Allergies (Unverified , 12/02/17) ROS Limited/Unobtainable: No Constitutional: Reports: no symptoms HEENT: Reports: no symptoms Cardiovascular: Reports: chest pain Respiratory: Reports: no symptoms Gastrointestinal/Abdominal: Reports: abdominal pain Genitourinary: Reports: no symptoms Neurologic/Psychiatric: Reports: no symptoms Subjective 52 YO M admitted with chest pain. Cover for Int Med - Dr Laughlin. C/O chest pain overnight Objective Last Vital Signs Date Time Temp Pulse Resp B/P (MAP) Pulse Ox O2 Delivery O2 Flow Rate FiO2 12/06/17 09:28 122/72 12/06/17 09:27 65 12/06/17 08:00 97.9 19 98 Room Air 97.9 Laboratory Tests Test 12/06/17 07:35 White Blood Count 5.3 K/UL (4.8-10.8) Red Blood Count 3.72 M/UL (4.70-6.10) L Hemoglobin 12.1 G/DL (14.2-18.0) L Hematocrit 36.3 % (42.0-52.0) L Mean Corpuscular Volume 98 FL (80-99) Mean Corpuscular Hemoglobin 32.6 PG (27.0-31.0) H Mean Corpuscular Hemoglobin Concent 33.3 G/DL (32.0-36.0) Red Cell Distribution Width 10.9 % (11.6-14.8) L Platelet Count 245 K/UL (150-450) Mean Platelet Volume 6.2 FL (6.5-10.1) L Neutrophils (%) (Auto) 52.1 % (45.0-75.0) Lymphocytes (%) (Auto) 37.1 % (20.0-45.0) Monocytes (%) (Auto) 6.7 % (1.0-10.0) Eosinophils (%) (Auto) 3.3 % (0.0-3.0) H Basophils (%) (Auto) 0.9 % (0.0-2.0) Sodium Level 143 MMOL/L (136-145) Potassium Level 4.3 MMOL/L (3.5-5.1) Chloride Level 108 MMOL/L (98-107) H Carbon Dioxide Level 32 MMOL/L (21-32) Anion Gap 3 mmol/L (5-15) L Blood Urea Nitrogen 12 mg/dL (7-18) Creatinine 0.9 MG/DL (0.55-1.30) Estimat Glomerular Filtration Rate > 60 mL/min (>60) Glucose Level 82 MG/DL (74-106) Calcium Level 8.2 MG/DL (8.5-10.1) L Troponin I 0.000 ng/mL (0.000-0.056) Pro-B-Type Natriuretic Peptide 50 pg/mL (0-125) Intake and Output 12/05/17 12/06/17 19:00 07:00 Intake Total 560 ml 120 ml Output Total 825 ml Balance 560 ml -705 ml Intake Oral 560 ml 120 ml Output Urine Total 825 ml # Voids 1 Objective PHYSICAL EXAMINATION: GENERAL: The patient is a well-developed and well-nourished thin-appearing male, in no apparent distress. VITAL SIGNS: Temperature 97.9 degrees, respirations 20, pulse 50 to 56, and blood pressure 146/80. HEENT: Eyes, pupils are equal and responsive to light and accommodation. Extraocular movements are intact. NECK: Supple without lymphadenopathy. CHEST: Lungs are clear to auscultation bilaterally without wheezes or rales. CARDIOVASCULAR: Regular rate. S1 and S2 normal without murmurs, rubs, or gallops. ABDOMEN: Soft, nontender, and nondistended. Positive bowel sounds. No evidence of hepatosplenomegaly. Currently, no rebound or guarding noted. EXTREMITIES: Negative for clubbing, cyanosis, or edema. RECTAL/GENITAL: Refused. NEUROLOGIC: Cranial nerves II through XII are grossly intact without focal deficits. Motor strength is 5/5 bilaterally. Deep tendon reflexes are 2+ plantar. Assessment/Plan Problem List: (1) Atypical chest pain Assessment & Plan: See cardiology note. Stress test = neg ischemia (2) Coronary artery disease (3) HTN (hypertension) Assessment & Plan: continue coreg and zestril (4) DMII (diabetes mellitus, type 2) (5) Hypercholesteremia Assessment & Plan: Continue lipitor (6) Bipolar 1 disorder Assessment & Plan: see psych note. (7) Renal calculus (8) Diverticulosis (9) Epigastric abdominal pain Assessment & Plan: Await endoscopy-see GI note. Status: progressing RONALD ELIZALDE Dec 06, 2017 11:56
[2017-12-06 12:00] VITALS: BP 108/65
--- NOTE | 2017-12-06 12:29 | Pulmonology Progress Note ---
Assessment/Plan Problems: (1) ACS (acute coronary syndrome) (2) Epigastric pain (3) Hypercholesteremia (4) HTN (hypertension) (5) Atypical chest pain Assessment/Plan ACS is ruled out symptomatic treatment EGD as outpatient pulse oximeter on room james Echo, cardio and GI note reviewed. Subjective ROS Limited/Unobtainable: No Constitutional: Reports: no symptoms HEENT: Repors: no symptoms Respiratory: Reports: no symptoms Cardiovascular: Reports: no symptoms Allergies: Coded Allergies: No Known Allergies (Unverified , 12/02/17) Objective Last 24 Hour Vital Signs Date Time Temp Pulse Resp B/P (MAP) Pulse Ox O2 Delivery O2 Flow Rate FiO2 12/06/17 09:28 122/72 12/06/17 09:27 122/72 12/06/17 09:27 122/72 12/06/17 09:27 65 122/72 12/06/17 08:00 97.9 59 19 122/72 98 Room Air 97.9 12/06/17 04:00 61 12/06/17 04:00 97.9 54 18 98/65 98 Room Air 97.9 12/06/17 00:00 58 12/06/17 00:00 97.9 59 18 108/69 98 Room Air 97.9 12/05/17 21:00 52 12/05/17 20:00 98.1 52 18 138/83 99 Room Air 98.1 12/05/17 20:00 56 12/05/17 18:32 133/80 12/05/17 18:22 130/78 12/05/17 16:00 55 12/05/17 16:00 97.7 52 19 121/72 100 Room Air 97.7 12/05/17 14:30 129/79 Intake and Output 12/05/17 12/06/17 19:00 07:00 Intake Total 560 ml 120 ml Output Total 825 ml Balance 560 ml -705 ml Intake Oral 560 ml 120 ml Output Urine Total 825 ml # Voids 1 General Appearance: cachetic HEENT: normocephalic, atraumatic Respiratory/Chest: chest wall non-tender, lungs clear, normal breath sounds, no respiratory distress Cardiovascular: normal peripheral pulses, normal rate, regularly irregular Abdomen: soft, non tender Laboratory Tests 12/06/17 07:35: White Blood Count 5.3, Red Blood Count 3.72L, Hemoglobin 12.1L, Hematocrit 36.3L , Mean Corpuscular Volume 98, Mean Corpuscular Hemoglobin 32.6H, Mean Corpuscular Hemoglobin Concent 33.3, Red Cell Distribution Width 10.9L, Platelet Count 245, Mean Platelet Volume 6.2L, Neutrophils (%) (Auto) 52.1, Lymphocytes (%) (Auto) 37.1, Monocytes (%) (Auto) 6.7, Eosinophils (%) (Auto) 3.3H, Basophils (%) (Auto) 0.9, Sodium Level 143, Potassium Level 4.3, Chloride Level 108H, Carbon Dioxide Level 32, Anion Gap 3L, Blood Urea Nitrogen 12, Creatinine 0.9, Estimat Glomerular Filtration Rate > 60, Glucose Level 82, Calcium Level 8.2L, Troponin I 0.000, Pro-B-Type Natriuretic Peptide 50 Current Medications Medications (Trade) Dose Ordered Sig/Becca Route PRN Reason Start Time Stop Time Status Last Admin Dose Admin Acetaminophen (Tylenol) 650 mg Q6H PRN ORAL Mild Pain/Temp > 100.5 12/03/17 01:45 01/02/18 01:44 Al Hydroxide/Mg Hydroxide (Mylanta) 30 ml EVERY 8 HOURS PRN ORAL Abdominal cramps 12/03/17 01:45 01/02/18 01:44 Aspirin (ASA) 81 mg DAILY ORAL 12/03/17 09:00 01/02/18 08:59 12/06/17 09:27 Atorvastatin Calcium (Lipitor) 20 mg BEDTIME ORAL 12/03/17 21:00 01/02/18 20:59 12/05/17 21:25 Carvedilol (Coreg) 6.25 mg EVERY 12 HOURS ORAL 12/03/17 09:00 01/02/18 08:59 12/06/17 09:27 Docusate Sodium (Colace) 100 mg TWICE A DAY ORAL 12/04/17 09:00 01/03/18 08:59 12/06/17 09:27 Famotidine (Pepcid) 20 mg BID ORAL 12/03/17 09:00 01/02/18 08:59 12/06/17 09:27 Heparin Sodium (Porcine) (Heparin 5000 units/ml) 5,000 units EVERY 12 HOURS SUBQ 12/03/17 09:00 01/02/18 08:59 12/06/17 09:30 Influenza Virus Vaccine Quadrival (Flu Vaccine Quadrivalent) 0.5 ml ONCE ONCE IM 12/07/17 09:00 12/07/17 09:01 Isosorbide Dinitrate (Isordil) 10 mg THREE TIMES A DAY ORAL 12/03/17 09:00 01/02/18 08:59 12/06/17 09:27 Lisinopril (Zestril) 5 mg DAILY ORAL 12/03/17 09:00 01/02/18 08:59 12/06/17 09:27 Morphine Sulfate (Morphine Sulfate) 2 mg Q6H PRN IVP severe pain 12/03/17 02:15 12/10/17 02:14 12/04/17 21:11 Nitroglycerin (Ntg) 0.4 mg Q5M PRN SL Prn Chest Pain 12/04/17 17:15 01/03/18 17:14 12/06/17 09:28 Ondansetron HCl (Zofran ODT) 4 mg Q6H PRN ORAL Nausea & Vomiting 12/03/17 02:30 01/02/18 02:29 Polyethylene Glycol (Miralax) 17 gm BEDTIME ORAL 12/04/17 21:00 01/03/18 20:59 Sertraline HCl (Zoloft) 100 mg DAILY ORAL 12/03/17 09:00 01/02/18 08:59 12/06/17 09:27 Trazodone HCl (Desyrel) 100 mg BEDTIME ORAL 12/03/17 21:00 01/02/18 20:59 12/05/17 21:25 Thi Dailey MD Dec 06, 2017 12:29
[2017-12-06 12:39] VITALS: BP 108/65
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
[2017-12-07] MEDS ORDERED: Flu Vaccine Quadrivalent 0.5ml IM ONE (09:00)
== END 2017-12-06 13:31 | disposition home or self-care (01) | DRG 198 ==
LOC: EDBD 22:15 → EMR 22:20 → 2E 22:55 → EDBEDREQ 23:55
DX: R07.89 Other chest pain (principal); I25.2 Old myocardial infarction; I10 Essential (primary) hypertension; I25.10 Atherosclerotic heart disease of native coronary artery without angina pectoris; E78.00 Pure hypercholesterolemia, unspecified; E11.9 Type 2 diabetes mellitus without complications; G89.29 Other chronic pain; M54.5 Low back pain; R10.9 Unspecified abdominal pain; F31.89 Other bipolar disorder; F14.21 Cocaine dependence, in remission; N20.0 Calculus of kidney; K57.90 Diverticulosis of intestine, part unspecified, without perforation or abscess without bleeding; Z23 Encounter for immunization
CPT/HCPCS: 36415; 71045; 74177; 78452; 80048; 80053; 81003; 82550; 82553; 83690; 83880; 84484; 85025; 93005; 93017; 93306; 99285; J2405; J2785

== ENCOUNTER 2020-01-20 08:45 | Emergency (ER) | payer MEDICAID, OTHER ==
[~2020-01-20] VITALS: Ht 198.1 cm; Wt 68.0 kg
[~2020-01-20 08:45] MED LIST: ACID REDUCER20 MG ORAL; ASPIR 8181 MG ORAL; ATORVASTATIN CA20 MG ORAL; CARVEDILOL6.25 MG ORAL; IBUPROFEN600 MG ORAL; ISOSORBIDE DINIT5 MG ORAL; LATUDA40 MG PO; LISINOPRIL5 MG ORAL; MELOXICAM7.5 MG PO; NORCO 5-325 TA1 EACH ORAL; PANTOPRAZOLE SO40 MG ORAL; SERTRALINE HCL25 MG ORAL; TRAZODONE HCL100 MG ORAL; ZOFRAN8 MG ORAL
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
[2020-01-20] MEDS ORDERED: Bacitracin Oint UD TOPIC ONE ×2 (09:12→09:15)
[2020-01-20 09:15] VITALS: BP 149/76
[2020-01-20] MEDS ORDERED: NORCO 5-325 TA1 EAC1 ORAL (09:16)
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
--- NOTE | 2020-01-20 09:30 | NUR ---
ER DISCHARGE NOTE: Patient is cleared to be discharged per ERMD, pt is aox4, on room air, with stable vital signs. pt was given dc and prescription instructions, pt was able to verbalize understanding, pt is able to ambulate with steady gait. pt took all belongings.
[2020-01-20 09:31] VITALS: BP 149/76
== END 2020-01-20 09:30 | disposition home or self-care (01) ==
LOC: EMR 09:24
DX: T23.372A Burn of third degree of left wrist, initial encounter (principal); T31.0 Burns involving less than 10% of body surface; X58.XXXA Exposure to other specified factors, initial encounter; Y92.9 Unspecified place or not applicable; I25.2 Old myocardial infarction; I10 Essential (primary) hypertension; Z88.6 Allergy status to analgesic agent
CPT/HCPCS: 99282